=== PATIENT | male | born 2005 | race Hispanic/Latino ===

== ENCOUNTER 2024-11-05 15:45 | Emergency (ER) | payer SELFPAY ==
[~2024-11-05] VITALS: Ht 170.2 cm; Wt 102.1 kg
--- NOTE | 2024-11-05 18:52 | HMCIMG ---
KNEE 3 VW BILATERAL REASON: Pain COMPARISON: None TECHNIQUE: 3 views were obtained of each knee, 6 views total. FINDINGS: Both knees show normal findings. There are no fractures. Joint spaces are preserved. There is no joint effusion. There is no soft tissue foreign body. IMPRESSION: 1. Normal 3 view exam of the right knee. 2. Normal 3 view exam of the left knee.
[2024-11-05] MEDS ORDERED: CEPH500T PO (19:06)
--- NOTE | 2024-11-05 19:07 | ERN ---
General Chief Complaint: Knee Injury/Swelling Stated Complaint: KNEE PAIN Time Seen by MD: 17:48 Time Seen by Midlevel: 17:48 Source: patient History of Present Illness Initial Comments 19-year-old male who presents to the ED due to bilateral knee pain. Patient reports he was working out during training fell and scraped both his knees. Patient then proceeded to shave both his knees and has been applying Neosporin. States he has been having pain to both knees mainly when standing for long periods of time. Denies significant past medical history. Allergies: Coded Allergies: No Known Drug Allergies (Unverified Allergy, Unknown, 11/05/24) Home Meds Active Scripts Cephalexin (Cephalexin) 500 Mg Tablet, 500 MG PO QID for 7 Days, #28 TAB Prov:SANG SUE 11/05/24 Past Medical History Past Medical History: No Pertinent History Past Surgical History: None ROS Dictation Constitutional: Negative for fever,chills, and weight loss Eyes: Negative for injury, pain,redness, and discharge ENT: Negative for injury,pain or swelling Cardiovascular: Negative for chest pain, palpitations, and edema Respiratory: Negative for shortness of breath, cough, and wheezing, Abdomen/GI: Negative for abdominal pain, nausea, vomiting, diarrhea, and constipation Back: Negative for injury and pain : Negative for painful urination, bleeding or discharge MS/Extremity: Positive for bilateral knee pain Negative for injury and deformity Skin: Negative for rash, and discoloration Neuro: Negative for headache, weakness, numbness, tingling, and seizure Psych: Negative for suicide ideation, homicidal ideation, and hallucinations Physical Exam Physical Exam Dictation General: awake, alert, no acute distress Head/Face: Normocephalic, atraumatic Cardiovascular: RRR, normal S1/S2, normal peripheral perfusion Skin: Warm, dry, normal turgor, mild erythema noted to bilateral knees with folliculitis MS/Extremity: Pulses equal, no cyanosis, neurovascular intact, FROM, bilateral knee full range of motion, nontender Neuro: COAx4, GCS 15, no neurological deficits, normal gait Psych: Normal behavior, mood, and affect normal Results EKG/XRAY/US/CT/MRI X-RAY Comment REASON: Pain ORDERING PHYSICIAN: SANG SUE PROCEDURE: KNEE 3VBIL - KNEE 3 VW BILATERAL KNEE 3 VW BILATERAL REASON: Pain COMPARISON: None TECHNIQUE: 3 views were obtained of each knee, 6 views total. FINDINGS: Both knees show normal findings. There are no fractures. Joint spaces are preserved. There is no joint effusion. There is no soft tissue foreign body. IMPRESSION: 1. Normal 3 view exam of the right knee. 2. Normal 3 view exam of the left knee. MDM MDM: Differential diagnosis: Folliculitis, cellulitis, fracture, sprain, strain Rationale:19-year-old male who presents to the ED due to bilateral knee pain. Patient reports he was working out during training fell and scraped both his knees. Patient then proceeded to shave both his knees and has been applying Neosporin. States he has been having pain to both knees mainly when standing for long periods of time. Denies significant past medical history. X-rays obtained of bilateral knees with no indications of fractures, dislocations, or acute abnormalities. Per physical examination cellulitis and folliculitis noted to bilateral knees. Patient was educated on findings and diagnosis. Ketorolac administered in the ED. Antibiotics prescribed for outpatient treatment. Return to the ED if any worsening symptoms. Patient verbalized understanding. Patient stable for discharge. There are no social concerns with this patient. I independently interpreted the test that were performed, results were reviewed by me and considered findings on radiology if ordered. Medical management and examination interpretation discussions were had by me with other qualified healthcare professionals as indicated for the patient's care. ED Course Orders Procedure Category Date Status Time Knee 3 Vw Bilateral RAD 11/05/24 Resulted 18:01 Ketorolac PHA 11/05/24 In Process Tromethamine 30mg/Ml 19:30 Current Medications Medications (Trade) Dose Ordered Sig/Feliberto Route PRN Reason Start Time Stop Time Status Last Admin Dose Admin Ketorolac Tromethamine (toRADol) 30 mg ONCE ONCE IM 11/05/24 19:30 11/05/24 19:31 Vital Signs Date Time Temp Pulse Resp B/P (MAP) Pulse Ox O2 Delivery O2 Flow Rate FiO2 11/05/24 15:48 98.2 78 18 121/69 98 DX & DISP Disposition: Discharge Departure Impression: Primary Impression: Cellulitis of knee, left Additional Impressions: Cellulitis, Folliculitis Condition: Stable Scripts Cephalexin (Cephalexin) 500 Mg Tablet 500 MG PO QID for 7 Days, #28 TAB Prov: SANG SUE 11/05/24 Additional Instructions: Discharge home. Rest. Follow up with primary care DrFeng in 24 hours. Return to the ER for any acute changes or worsening symptoms. If any medications were prescribed take as directed. Okay to continue home medications unless otherwise discussed during your visit in the emergency room today. Patient was also advised to follow-up with primary care physician in 1 to 2 days for continued monitoring. Referrals: SELF,REFERRAL (PCP) I participated in the following activities of this patient's care: For this patient encounter, I reviewed the PA or [employer]GER documentation, treatment plan, and medical decision making. I did not have [id number] time with this patient. I will sign as the reviewing DrFeng And agree with the treatment plan and disposition. SANG SUE Nov 05, 2024 19:06
[2024-11-05] MEDS: ketOROlac 30MG VIAL (30MG/ML) IM ONE (19:21)
[2024-11-05 19:38] VITALS: BP 122/74; PULSE 80; RESP 18; TEMP 98.2; O2SAT 100
== END 2024-11-05 19:39 | disposition home or self-care (01) ==
LOC: EDH 15:45
DX: L03.116 Cellulitis of left lower limb (principal); L73.9 Follicular disorder, unspecified; Z79.899 Other long term (current) drug therapy
CPT/HCPCS: 99283; 73562; 96372; J1885